=== PATIENT | male | born 1995 | race Two or more races ===

== ENCOUNTER 2017-02-16 16:01 | Emergency (ER) | payer BC ==
[~2017-02-16] VITALS: Ht 188 cm; Wt 84.8 kg
--- NOTE | 2017-02-16 16:10 | NUR ---
BIB [facility] 41 FROM HOME FOR WITNESSED SEIZURE PER MOTHER ~7 MINUTES AGO. PATIENT IS A/OX 1. BREATHING EVEN AND UNLABORED. NO SOB. VITALS STABLE. SAFETY AND COMFORT MEASURES IN PLACE. AWAITING MD ORDERS.
--- NOTE | 2017-02-16 16:20 | NUR ---
BLOOD DRAWN FROM IV IN PLACE ON LAC, 18 G AND SENT TO LAB.
[2017-02-16 16:37] LABS: CALCIUM, SERUM 8.9 mg/dL (8.5-10.1); POTASSIUM 4.2 mmol/L (3.5-5.1)
[2017-02-16 16:43] LABS: ALBUMIN 4.1 g/dL (3.4-5.0); BILIRUBIN,TOTAL 0.3 mg/dL (0.2-1.0); TOTAL PROTEIN, SERUM 7.6 g/dL (6.4-8.2)
--- NOTE | 2017-02-16 17:20 | NUR ---
Patient medicated per MD orders.
[2017-02-16 18:26] VITALS: BP 134/72
--- NOTE | 2017-02-16 18:27 | NUR ---
Patient discharged to home in stable condition. Written and verbal after care instructions given. Family verbalizes understanding of instruction.
== END 2017-02-16 18:30 | disposition home or self-care (01) ==
LOC: ER 16:03
DX: G40.909 Epilepsy, unspecified, not intractable, without status epilepticus (principal); F84.0 Autistic disorder
CPT/HCPCS: 36415; 80053-TC; 80164-TC; A4606; J3490; J7060; Z7610

== ENCOUNTER 2017-05-26 16:36 | Emergency (ER) | payer BC, MEDICAID ==
[~2017-05-26] VITALS: Ht 170.2 cm; Wt 77.1 kg
[2017-05-26 16:39] VITALS: BP 128/66
--- NOTE | 2017-05-26 16:58 | NUR ---
DR GONZALEZ AT BEDSIDE FOR EVAL.
== END 2017-05-26 17:36 | disposition home or self-care (01) ==
LOC: ER 16:40
DX: S09.90XA Unspecified injury of head, initial encounter (principal); G40.909 Epilepsy, unspecified, not intractable, without status epilepticus; F84.0 Autistic disorder; W01.198A Fall on same level from slipping, tripping and stumbling with subsequent striking against other object, initial encounter; Y93.89 Activity, other specified; Y92.89 Other specified places as the place of occurrence of the external cause; Y99.8 Other external cause status
CPT/HCPCS: 99281; A4606; Z7502; Z7610

== ENCOUNTER 2020-03-03 20:05 | Emergency (ER) | payer MEDICAID, OTHER ==
[~2020-03-03] VITALS: Ht 182.9 cm; Wt 81.6 kg
[2020-03-03 20:05] VITALS: BP 114/57
--- NOTE | 2020-03-03 20:59 | NUR ---
Patient discharged to home in stable condition under the care of his mother. Written and verbal after care instructions given given to mother. Patient'a mother verbalizes understanding of instruction.
== END 2020-03-03 21:01 | disposition home or self-care (01) ==
LOC: ER 20:12
DX: G40.909 Epilepsy, unspecified, not intractable, without status epilepticus (principal); F84.0 Autistic disorder; R41.0 Disorientation, unspecified; R00.0 Tachycardia, unspecified